=== PATIENT | male | born 1990 | race Caucasian/White ===

== ENCOUNTER 2018-07-06 14:04 | Emergency (ER) | payer SELFPAY ==
[~2018-07-06] VITALS: Ht 170.2 cm; Wt 77.1 kg
--- NOTE | 2018-07-06 14:53 | NUR ---
PT.WAS SEEN BY .
[2018-07-06 15:08] VITALS: BP 108/68
--- NOTE | 2018-07-06 15:12 | NUR ---
D/C INSTR. GIVEN ,FAMILY AT BEDSIDE.
== END 2018-07-06 15:14 | disposition home or self-care (01) ==
LOC: ER 14:04
DX: L05.01 Pilonidal cyst with abscess (principal)
CPT/HCPCS: A4663

== ENCOUNTER 2021-08-26 13:55 | Emergency (ER) | payer OTHER ==
[~2021-08-26] VITALS: Ht 167.6 cm; Wt 72.6 kg
--- NOTE | 2021-08-26 14:00 | NUR ---
Pt brought to room 1B by stocklayer Ezra, pt placed on gurney in pos of comfort. Pt otherwise healthy, just complaining of soar throat and feeling under the weather times one week, but . Pt just wants to get tested to make sure its not strep. However, soar throat has not gotten any worst in one week, so pt was perplexed as to weather he has strep and wiether or not he needs axb. Pt awaiting EDMD for eval. VSS, Pt aaox4, PE WNL. Pt denies any pain, sob, n/v or except for the painin his soar throat.
--- NOTE | 2021-08-26 14:05 | NUR ---
Pt swabbed for strep using aseptic tech. and a blue culture swab used which is not for the group A rapid strep test. Pt refused to be swabbed by official rapid strep swab and said that its quite alright He is not requiring a rapid strep and said that he is totally fine with the reg throat cult that results in 46hrs. Pt refused and said that he will wait for the results.
--- NOTE | 2021-08-26 14:20 | NUR ---
machine packaging technician at bedside to draw blood on pt. Blood collected and sent to lab for analysis. CBC and Chem 7 ordered. Pt patiently awaiting results and dispo.
[2021-08-26] MEDS ORDERED: LIDOCAINE VISCUS 2% 15 ML UDC MM ONE (14:30)
[2021-08-26 14:37] LABS: HEMATOCRIT 45.8 % (36.7-47.1); MEAN CORPUSCULAR HEMOGLOBIN 27.1 uug (23.8-33.4); PLATELET COUNT (AUTO) 220 K/uL (152-348)
[2021-08-26 14:59] LABS: CREATININE 0.9 mg/dL (0.6-1.3); POTASSIUM 4.2 mmol/L (3.5-5.1)
[2021-08-26 15:09] LABS: BILIRUBIN,TOTAL 0.9 mg/dL (0.2-1.0); TOTAL PROTEIN, SERUM 7.9 g/dL (6.4-8.2)
[2021-08-26] MEDS ORDERED: LIDOCAINE VISCUS 2% 15 ML UDC ONE (15:29)
--- NOTE | 2021-08-26 16:57 | NUR ---
Gave pt thorough DC instructions and pt confirmed understanding of aftercare. Pt was told that he will be contacted if throat culture s Addendum: 08/26/21 at 1700 by [email or web address] Note was entered in wrong time, Pt was Dced home and left dept at 1545. Pt was greatful for care he received. Pt was told that he would be notified if throat culture was pos for bacterial growth or group A strep. If the culture is neg, no call will be placed and he can assume that the culture showed no growth. VSS, PE WNL, NAD, no trach dev, no JVD, no dental caries or lesions, election watcher strength bilat equal, Lungs ctab, PERRLA, good distal pulses x4ext. No s/sx of distress present.
[2021-08-26 17:37] VITALS: BP 113/75
== END 2021-08-26 15:45 | disposition home or self-care (01) ==
LOC: ER 13:55
DX: J02.9 Acute pharyngitis, unspecified (principal)
CPT/HCPCS: 36415; 85025; 87070; A4663

== ENCOUNTER 2022-04-01 15:33 | Emergency (ER) | payer OTHER ==
[~2022-04-01] VITALS: Ht 167.6 cm; Wt 72.6 kg
--- NOTE | 2022-04-01 15:48 | NUR ---
Dr Bloom at the bedside for MSE.
[2022-04-01 16:55] VITALS: BP 111/64
--- NOTE | 2022-04-01 16:55 | NUR ---
Patient discharged to home in stable condition. Written and verbal after care instructions given. Patient verbalizes understanding of instructions. Stressed follow up or return to ER for worsening s/s.
== END 2022-04-01 16:56 | disposition home or self-care (01) ==
LOC: ER 15:33
DX: R51.9 Headache, unspecified (principal)
CPT/HCPCS: A4663

== ENCOUNTER 2024-04-19 20:20 | Emergency (ER) | payer SELFPAY | END 2024-04-19 21:30 | disposition left against medical advice (07) | LOC: ER 20:20 | DX: M79.646 Pain in unspecified finger(s) (principal); Z60.2 Problems related to living alone; Z53.21 Procedure and treatment not carried out due to patient leaving prior to being seen by health care provider ==